=== PATIENT | female | born 1955 | race Caucasian/White ===

== ENCOUNTER → 2018-03-28 | Outpatient (CLI) | payer BC ==
[~2018-03-28] MED LIST: LEVOTHYROXINE50 MCG PO; LISINOPRIL10 MG PO; METOPROLOL SUCC25 MG PO; METOPROLOL TART50 MG PO
== END ==
LOC: RAD 16:17
PROVIDERS: ATTEND Family Medicine
DX: R60.0 Localized edema (principal)
CPT/HCPCS: 93971

== ENCOUNTER 2019-04-29 12:54 | Emergency (ER) | payer MEDICARE ==
[~2019-04-29] VITALS: Ht 162.6 cm; Wt 141.1 kg
--- OUTSIDE RECORDS SUMMARY | 2019-04-29 12:57 | XMS REPORT | Continuity of Care Document ---
Author Author [employer] Organization [employer] Address Unknown Phone Unavailable Care Team Providers Care Telephoto Engineer Name Role Phone [employer] Information PAK Unavailable Unavailable Problems Problem Status Onset Date Classification Date Reported Comments Source UNK Active 02/24/2016 [facility] S/P SENTINAL NODE INJECTION Active 02/24/2016 [facility] N64.9 - "DISORDER OF BREAST, UNSPECIFIE" Active 01/15/2016 [facility] [place] Chronic obstructive lung disease (disorder) Active Problem 03/08/2016 [facility] Hypertensive disorder, systemic arterial (disorder) Active Problem 03/08/2016 [facility] Hypothyroidism (disorder) Active Problem 03/08/2016 [facility] Sleep apnea (finding) Active Problem 03/08/2016 uses a CPAP [facility] Malignant tumor of breast (disorder) Active Problem 03/08/2016 [facility] Medications Medication Details Route Status Patient Instructions Ordering Provider Order Date Source Tylenol 325 mg, Route: PO, Drug form: TAB, Q6H, Dosing Weight 139.545, kg, PRN Pain Score 1-3, Start date: 03/05/16 11:58:00 CDT, Duration: 30 day, Stop date: 04/04/16 11:57:00 CDT Inactive 03/05/2016 [facility] Tylenol 650 mg, 2 tab, Route: PO, Drug form: TAB, Q6H, Dosing Weight 139.545, kg, PRN Pain Score 1-3, Start date: 03/05/16 11:29:00 CDT, Stop date: 04/04/16 11:28:00 CDTNotes: Do not exceed 4 gm/day. (Same as: Tylenol) Inactive 03/05/2016 [facility] Streptococcus pneumoniae serotype 1 capsular antigen diphtheria [id number] protein conjugate vaccine / Streptococcus pneumoniae serotype 14 capsular antigen diphtheria [id number] protein conjugate vaccine / Streptococcus pneumoniae serotype 18C capsular antigen d 0.5 mL, Route: IM, Drug Form: INJ, Daily, Start date: 03/05/16 9:00:00 CDT, Stop date: 03/05/16 11:00:00 CDTNotes: Lightly roll vial (DO NOT SHAKE) before administration. (Same as: Prevnar 13) Inactive 03/05/2016 [facility] metoprolol extended release 25 mg, 1 tab, Route: PO, Drug form: ERTAB, Daily, Start date: 03/05/16 9:00:00 CDT, Duration: 30 day, Stop date: 04/03/16 9:00:00 CDTNotes: (Same as: Toprol XL) Do Not Crush Inactive 03/05/2016 [facility] Lisinopril 10 mg, 1 tab, Route: PO, Drug form: TAB, Daily, Dosing Weight 139.545, kg, Start date: 03/05/16 9:00:00 CDT, Duration: 30 day, Stop date: 04/03/16 9:00:00 CDTNotes: (Same as: Prinivil, Zestril) Inactive 03/05/2016 [facility] Thyroxine 50 microgram, 1 tab, Route: PO, Drug form: TAB, Q630AM, Dosing Weight 139.545, kg, Start date: 03/05/16 6:30:00 CDT, Duration: 30 day, Stop date: 04/03/16 6:30:00 CDTNotes: Take 1 hour before or 2 hours after meal; Enteral feeds may interefere with the absorption of this medication.(Same as:Levothroid, Synthroid) Inactive 03/05/2016 [facility] Phenergan 25 mg, 1 supp, Route: VT, Drug form: SUPP, ONCE, Dosing Weight 139.545, kg, PRN Nausea & Vomiting, Start date: 03/04/16 22:25:00 CDT, Stop date: 04/03/16 22:24:00 CDTNotes: (Same as: Phenergan) Inactive 03/05/2016 [facility] Acetaminophen 300 MG / Codeine Phosphate 30 MG Oral Tablet [Tylenol with Codeine #3] 1 tab, Route: PO, Drug Form: TAB, Dosing Weight 139.545, kg, Q4H, PRN Pain Score 1-3, Start date: 03/04/16 16:41:00 CDT, Duration: 30 day, Stop date: 04/03/16 16:40:00 CDTNotes: Do not exceed 4gm/day of acetaminophen. (Same as: Tylenol with Codeine # 3) No Longer Active 03/04/2016 [facility] Morphine 2 mg, 1 mL, Route: IVP, Drug form: INJ, Q1H, Dosing Weight 139.545, kg, PRN Pain Score 7-10, Start date: 03/04/16 16:37:00 CDT, Duration: 30 day, Stop date: 04/03/16 16:36:00 CDTNotes: (Same as:MORPhine Sulfate) No Longer Active 03/04/2016 [facility] Zofran 4 mg, 2 mL, Route: IV, Drug form: INJ, Q4H, Dosing Weight 139.545, kg, PRN Nausea, Start date: 03/04/16 16:37:00 CDT, Duration: 30 day, Stop date: 04/03/16 16:36:00 CDTNotes: (Same as: Zofran) MEDICATION WASTE Product Size: 4 mg Product Wasted: ___ mg No Longer Active 03/04/2016 [facility] Lactated Ringers 1,000 mL 1,000 mL, Rate: 40 ml/hr, Infuse over: 25 hr, Route: IV, Dosing Weight 139.545 kg, Total Volume: 1,000, Start date: 03/04/16 16:35:00 CDT, Duration: 30 day, Stop date: 04/03/16 16:34:00 CDT No Longer Active 03/04/2016 [facility] Ondansetron 4 mg, Route: IVP, ONCE, Dosing Weight 139.545, kg, PRN Nausea & Vomiting, Start date: 03/04/16 13:23:00 CDT Inactive 03/04/2016 [facility] Naloxone 0.4 mg, Route: IVP, Q2MIN, Dosing Weight 139.545, kg, PRN Narcotic Reversal, Start date: 03/04/16 13:23:00 CDT, Duration: 8 doses or times, Stop date: Limited # of times Inactive 03/04/2016 [facility] Flumazenil 0.2 mg, Route: IVP, PRN, Dosing Weight 139.545, kg, PRN Benzodiazepine Reversal, Initial dose, Start date: 03/04/16 13:23:00 CDT, Duration: 30 day, Stop date: 04/03/16 13:22:00 CDT Inactive 03/04/2016 [facility] Fentanyl 50 microgram, Route: IVP, Q5Min, Dosing Weight 139.545, kg, PRN Pain Score 7-10, Start date: 03/04/16 13:23:00 CDT, Duration: 2 doses or times, Stop date: Limited # of times Inactive 03/04/2016 [facility] Hydromorphone 0.5 mg, Route: IVP, Q5Min, Dosing Weight 139.545, kg, PRN Pain Score 7-10, Start date: 03/04/16 13:23:00 CDT, Duration: 4 doses or times, Stop date: Limited # of times Inactive 03/04/2016 [facility] Oxycodone 10 mg, Route: PO, Drug form: TAB, Q4H, Dosing Weight 139.545, kg, PRN Pain Score 7-10, Start date: 03/04/16 13:23:00 CDT, Duration: 30 day, Stop date: 04/03/16 13:22:00 CDT Inactive 03/04/2016 [facility] Acetaminophen 1,000 mg, Route: IVPB, Drug form: INJ, ONCE, Dosing Weight 139.545, kg, PRN Pain Score 1-3, Start date: 03/04/16 13:23:00 CDT, Duration: 1 doses or times, Stop date: Limited # of times Inactive 03/04/2016 [facility] Labetalol 10 mg, Route: IVP, Q5Min, Dosing Weight 139.545, kg, PRN Elevated BP, Start date: 03/04/16 13:23:00 CDT, Duration: 5 doses or times, Stop date: Limited # of times Inactive 03/04/2016 [facility] neostigmine (ANES) Route: IV, Drug form: INJ, ONCE, Stop date: 03/04/16 13:13:00 CDT Inactive 03/04/2016 [facility] glycopyrrolate (ANES) Route: IV, Drug form: INJ, ONCE, Stop date: 03/04/16 13:13:00 CDT Inactive 03/04/2016 [facility] hydromorphone (ANES) Route: IV, Drug form: INJ, ONCE, Stop date: 03/04/16 13:09:00 CDT Inactive 03/04/2016 [facility] ondansetron (ANES) Route: IV, Drug form: INJ, ONCE, Stop date: 03/04/16 13:09:00 CDT Inactive 03/04/2016 [facility] ePHEDrine (ANES) Route: IV, Drug form: INJ, ONCE, Stop date: 03/04/16 11:29:00 CDT Inactive 03/04/2016 [facility] lidocaine (ANES) Route: IV, Drug form: INJ, ONCE, Stop date: 03/04/16 11:24:00 CDT Inactive 03/04/2016 [facility] propofol (ANES) Route: IV, Drug form: INJ, ONCE, Stop date: 03/04/16 11:24:00 CDT Inactive 03/04/2016 [facility] rocuronium (ANES) Route: IV, Drug form: INJ, ONCE, Stop date: 03/04/16 11:24:00 CDT Inactive 03/04/2016 [facility] fentaNYL (ANES) Route: IV, Drug form: INJ, ONCE, Stop date: 03/04/16 11:24:00 CDT Inactive 03/04/2016 [facility] midazolam (ANES) Route: IV, Drug form: SOLN, ONCE, Stop date: 03/04/16 11:24:00 CDT Inactive 03/04/2016 [facility] acetaminophen (ANES) (ANES) Route: IV, Drug form: INJ, Start date: 03/04/16 10:57:00 CDT, Stop date: 03/04/16 11:57:00 CDT Inactive 03/04/2016 [facility] ceFAZolin (ANES) (ANES) Route: IV, Drug form: INJ, Start date: 03/04/16 10:45:00 CDT, Stop date: 03/04/16 11:45:00 CDT Inactive 03/04/2016 [facility] LR 1000 mL INJ (ANES) Route: IV, Total Volume: 1,000, Start date: 03/04/16 10:39:00 CDT, Stop date: 03/04/16 11:39:00 CDT Inactive 03/04/2016 [facility] Calcium Chloride 0.0014 MEQ/ML / Potassium Chloride 0.004 MEQ/ML / Sodium Chloride 0.103 MEQ/ML / Sodium Lactate 0.028 MEQ/ML Injectable Solution 1,000 mL, Rate: 25 ml/hr, Infuse over: 40 hr, Route: IV, Dosing Weight 139.545 kg, Total Volume: 1,000, Start date: 03/04/16 9:29:00 CDT, Duration: 30 day, Stop date: 04/03/16 9:28:00 CDT Inactive 03/04/2016 [facility] methylene blue 10 mg/mL injectable solution 100 mg, 10 mL, Route: InFILtration(local), Drug form: INJ, ONCE, Dosing Weight 139.545, kg, Start date: 03/04/16 7:11:00 CDT, Stop date: 03/04/16 7:11:00 CDTNotes: (Same as :Methylene Blue) MEDICATION WASTE Product Size: 100 mg Product Wasted: ___ mg Inactive 03/04/2016 [facility] Fentanyl 50 microgram, 1 mL, Route: IVP, Drug form: INJ, Q5Min, Dosing Weight 140, kg, PRN Pain Score 7-10, Start date: 02/11/16 16:20:00 CDT, Duration: 2 doses or times, Stop date: Limited # of timesNotes: ( Same as: Sublimaze) Preservative free. No Longer Active 02/11/2016 [facility] Oxycodone 10 mg, 2 tab, Route: PO, Drug form: TAB, Q4H, Dosing Weight 140, kg, PRN Pain Score 7-10, Start date: 02/11/16 16:20:00 CDT, Duration: 30 day, Stop date: 03/12/16 16:19:00 CDTNotes: (Same as: Roxicodone) No Longer Active 02/11/2016 [facility] Morphine 4 mg, 2 mL, Route: IVP, Drug form: INJ, Q5Min, Dosing Weight 140, kg, PRN Pain Score 7-10, Start date: 02/11/16 16:20:00 CDT, Duration: 3 doses or times, Stop date: Limited # of timesNotes: (Same as: MORPhine Sulfate) No Longer Active 02/11/2016 [facility] Hydromorphone 0.5 mg, 0.5 mL, Route: IVP, Drug form: INJ, Q5Min, Dosing Weight 140, kg, PRN Pain Score 7-10, Start date: 02/11/16 16:20:00 CDT, Duration: 4 doses or times, Stop date: Limited # of times No Longer Active 02/11/2016 [facility] Ondansetron 4 mg, 2 mL, Route: IVP, Drug form: INJ, ONCE, Dosing Weight 140, kg, PRN Nausea & Vomiting, Start date: 02/11/16 16:20:00 CDTNotes: (Same as: Zofran) MEDICATION WASTE Product Size: 4 mg Pr oduct Wasted: ___ mg No Longer Active 02/11/2016 [facility] Meperidine 12.5 mg, 0.25 mL, Route: IVP, Drug form: INJ, Q30Min, Dosing Weight 140, kg, PRN Other -See Comment, For shivering, Start date: 02/11/16 16:20:00 CDT, Duration: 2 doses or times, Stop date: Limited # of timesNotes: (Same As: Demerol) No Longer Active 02/11/2016 [facility] Promethazine 6.25 mg, 0.25 mL, Route: IVPB, ONCE, Dosing Weight 140, kg, PRN Nausea & Vomiting, Start date: 02/11/16 16:20:00 CDTNotes: Do not give IV push. (Same as: Phenergan) No Longer Active 02/11/2016 [facility] Flumazenil 0.2 mg, 2 mL, Route: IVP, Drug form: INJ, PRN, Dosing Weight 140, kg, PRN Benzodiazepine Reversal, Initial dose, Start date: 02/11/16 16:20:00 CDT, Duration: 30 day, Stop date: 03/12/16 16:19:00 CDTNotes: (Same as: Romazicon) No Longer Active 02/11/2016 [facility] Naloxone 0.4 mg, 1 mL, Route: IVP, Drug form: INJ, Q2MIN, Dosing Weight 140, kg, PRN Narcotic Reversal, Start date: 02/11/16 16:20:00 CDT, Duration: 8 doses or times, Stop date: Limited # of timesNotes: Same as Narcan No Longer Active 02/11/2016 [facility] Hydralazine 10 mg, 0.5 mL, Route: IVP, Drug form: INJ, Q20Min, Dosing Weight 140, kg, PRN Elevated BP, Start date: 02/11/16 16:20:00 CDT, Duration: 2 doses or times, Stop date: Limited # of timesNotes: (Same as: Apresoline) Push over 5 minutes No Longer Active 02/11/2016 [facility] Ketorolac 30 mg, 1 mL, Route: IVP, Drug form: INJ, ONCE, Dosing Weight 140, kg, Start date: 02/11/16 16:20:00 CDT, Duration: 1 doses or times, Stop date: 02/11/16 16:20:00 CDTNotes: (Same as:Toradol) IV bolus must be given >15 seconds. Give IM administration slowly and deeply into the muscle. Not for use > 4 days MEDICATION WASTE Product Size: 30 mg Product Wasted: ___ mg Inactive 02/11/2016 [facility] Metoprolol 1 mg, 1 mL, Route: IVP, Drug form: INJ, Q5Min, Dosing Weight 140, kg, PRN Other -See Comment, Start date: 02/11/16 16:20:00 CDT, Duration: 5 doses or times, Stop date: Limited # of timesNotes: (Same as: Lopressor) Push over 2 minutes No Longer Active 02/11/2016 [facility] ePHEDrine (ANES) Route: IV, Drug form: INJ, ONCE, Stop date: 02/11/16 14:58:00 CDT Inactive 02/11/2016 [facility] acetaminophen (ANES) Route: IV, Drug form: INJ, ONCE, Stop date: 02/11/16 14:42:00 CDT Inactive 02/11/2016 [facility] phenylephrine (ANES) Route: IV, Drug form: INJ, ONCE, Stop date: 02/11/16 14:42:00 CDT Inactive 02/11/2016 [facility] fentaNYL (ANES) Route: IV, Drug form: INJ, ONCE, Stop date: 02/11/16 14:22:00 CDT Inactive 02/11/2016 [facility] propofol (ANES) Route: IV, Drug form: INJ, ONCE, Stop date: 02/11/16 14:22:00 CDT Inactive 02/11/2016 [facility] lidocaine (ANES) Route: IV, Drug form: INJ, ONCE, Stop date: 02/11/16 14:22:00 CDT Inactive 02/11/2016 [facility] ondansetron (ANES) Route: IV, Drug form: INJ, ONCE, Stop date: 02/11/16 14:22:00 CDT Inactive 02/11/2016 [facility] ceFAZolin (ANES) Route: IV, Drug form: INJ, ONCE, Stop date: 02/11/16 14:22:00 CDT Inactive 02/11/2016 [facility] midazolam (ANES) Route: IV, Drug form: SOLN, ONCE, Stop date: 02/11/16 14:22:00 CDT Inactive 02/11/2016 [facility] LR 1000 mL INJ (ANES) Route: IV, Total Volume: 1,000, Start date: 02/11/16 13:37:00 CDT, Stop date: 02/11/16 14:37:00 CDT Inactive 02/11/2016 [facility] Calcium Chloride 0.0014 MEQ/ML / Potassium Chloride 0.004 MEQ/ML / Sodium Chloride 0.103 MEQ/ML / Sodium Lactate 0.028 MEQ/ML Injectable Solution 1,000 mL, Rate: 25 ml/hr, Infuse over: 40 hr, Route: IV, Dosing Weight 140 kg, Total Volume: 1,000, Start date: 02/11/16 12:31:00 CDT, Duration: 30 day, Stop date: 03/12/16 12:30:00 CDT Inactive 02/11/2016 [facility] Methylene blue 10 MG/ML Injectable Solution 30 mg, 3 mL, Route: InFILtration(local), Drug form: INJ, ONCE, Dosing Weight 140, kg, Start date: 02/11/16 10:14:00 CDT, Stop date: 02/11/16 10:14:00 CDTNotes: (Same as:Methylene Blue) MEDICATION WASTE Product Size: 10 mg Product Wasted: ___ mg Inactive 02/11/2016 [facility] Acetaminophen 500 MG Oral Tablet [Tylenol] 1,000 mg=2 tab, PO, Q6H, 0 Refill(s) Active 02/05/2016 [facility] multivitamin Daily, 0 Refill(s) Active 02/05/2016 [facility] metoprolol extended release PO, Daily, 0 Refill(s) Active 02/05/2016 [facility] Ibuprofen 0 Refill(s) Active 02/05/2016 [facility] Lisinopril PO, Daily, 0 Refill(s) Active 02/05/2016 [facility] levothyroxine 50 mcg (0.05 mg) oral tablet 50 microgram=1 tab, PO, Daily, 0 Refill(s) Active 02/05/2016 [facility] Allergies, Adverse Reactions, Alerts Substance Category Reaction Severity Reaction type Status Date Reported Comments Source erythromycin Assertion Drug allergy Active [facility] iodine topical Assertion Drug allergy Active [facility] tetracyclines Assertion Drug allergy Active [facility] Vicodin Assertion Drug allergy Active [facility] Levaquin Assertion Drug allergy Active [facility] statins Assertion Drug allergy Active [facility] Immunizations Immunization Date Given Site Status Last Updated Comments Source pneumococcal 13-valent vaccine 03/05/2016 Buttock completed Kapil [facility] Results No Data Provided for This Section Pathology Reports No Data Provided for This Section Diagnostic Reports Report Value Date Source Sentinal Node injection NM BREAST INJECTION FOR SENTINEL LYMPH NODE LOCALIZATION Clinical Indication: C50.812 Malignant neoplasm of overlapping sites of left female breast The left breast was injected with 1 mCi of filtered technetium sulfur colloid in the subareolar region at the 6 o'clock position. The injection was made in a single aliquot. The breast was massaged for a period of 1-2 minutes. The patient tolerated the procedure well. SL: [id number] 03/04/2016 [facility] Breast specimen surgery - BREAST SPECIMEN SURGERY SPECIMEN: 02/11/2016 CLINICAL: Breast Cancer. Correlation is made to exams dated: 02/11/2016 mammogram - [facility], 01/22/2016 mammogram - [facility], 12/30/2015 mammogram, 12/30/2015 ultrasound and 12/30/2015 ultrasound - [facility]. A specimen submitted for radiography demonstrates the targeted mass, clip, and distal portion of the wire. Final pathology results are as follows: '1. Left breast mass at 6 o'clock position, needle localization wire-guided lumpectomy: - INVASIVE DUCTAL CARCINOMA, MUCINOUS/COLLOID TYPE, NUCLEAR GRADE 1. TUMOR IS 1.6 CM IN GREATEST DIMENSION. - Tumor is at 0.8 mm from the inked anterior margin and 1.6 mm from the inked posterior margin (see comment). - Changes consistent with previous biopsy site. - Columnar cell changes with focal atypia. - Fibrocystic changes with adenosis and complex sclerosing lesion/papilloma. 2. Left breast mass additional superior margin: - Breast parenchyma, no tumor present. - Inked new margin is free of tumor.' IMPRESSION: SPECIMEN Surgical and oncologic follow up is recommended. Jeramy Juarez M.D. ap/:02/16/2016 08:00:32 Hand Buffer: Radha Argueta, [facility] This exam was dictated and interpreted by [id number] for [facility], 12. letter sent: Post Bx Results 02/11/2016 [facility] Digital Mammo DX Uni MA - DIGITAL MAMMO DX UNI MA/L UNILATERAL LEFT DIGITAL DIAGNOSTIC MAMMOGRAM WITH CAD: 02/11/2016 CLINICAL: Post Procedure Wire Placement. Current study was evaluated with a Computer Aided Detection (CAD) system. Comparison is made to exams dated: 02/11/2016 localization - [facility], 01/22/2016 ultrasound and 01/22/2016 mammogram - [facility]. Postprocedure digital mammogram demonstrates the targeted mass and clip are at the reinforced segment of the wire. IMPRESSION: POST PROCEDURE MAMMOGRAM FOR MARKER PLACEMENT Successful needle localization of the left breast 6 o'clock mass. Jeramy Juarez M.D. ap/:02/11/2016 11:23:00 Hand Buffer: Deb Calderon, [facility] This exam was dictated and interpreted by [id number] for [facility]. Mammogram BI-RADS: Post-procedure mammogram for marker placement 02/11/2016 [facility] US Guided Needle Localization Uni MA AMENDMENT: 05/24/2016 Crow Stanford M.D. letter sent: Post Bx Results - US GUIDED NEEDLE LOCALIZATION UNI MA/L ULTRASOUND GUIDED WIRE LOCALIZATION LEFT BREAST WITH POST DIGITAL MAMMOGRAPHIC IMAGIN02/11/2016 CLINICAL: Mass. PATIENT CONSENT: Informed consent was obtained for preoperative hookwire needle localization of the targeted lesion following a detailed discussion of the risk, alternatives, benefits and complications. A formal timeout was performed by the team prior to the procedure to verify the patient's identity and lesion site. Correlation is made to exam dated: 01/22/2016 ultrasound - [facility]. A wire localization using ultrasound guidance was performed for the 1.1 cm irregular shaped mass located in the left breast at 6 o'clock posterior depth 5 cm from the nipple. This was described on the previous ultrasound report. The skin was prepped in the usual manner. Local anesthetic was administered to the access site. A skin eric was made in the breast. The localization was approach ed from the lateral aspect. A wire was inserted into the targeted area through an introducer device under ultrasound guidance. A sterile dressing was applied to the access site. Post placement digital mammographic imaging demonstrates the mass and clip are at the reinforced segment of the wire. IMPRESSION: WIRE LOCALIZATION Wire localization for the 1.1 cm mass in the left breast at 6 o'clock posterior depth 5 cm from the nipple was successful with no apparent post procedure complications. Jeramy Juarez M.D. ap/:02/11/2016 11:21:00 Hand Buffer: Adonay Moya, [facility] This exam was dictated and interpreted by [id number] for [facility]. 02/11/2016 [facility] Breast Complete Martha US - BREAST COMPLETE MRATHA US ULTRASOUND OF BOTH BREASTS AND LEFT AXILLA: 01/22/2016 CLINICAL: N64.9 Disorder Of Breast, Unspecified. Comparison is made to exams dated: 01/22/2016 mammogram - [facility], 12/30/2015 mammogram, 12/30/2015 ultrasound, 12/30/2015 ultrasound, 12/25/2015 mammogram and 12/20/2015 mammogram - [facility]. Color flow and real-time ultrasound of both breasts and left axilla were performed. There is a benign lymph node in the right axillary tail. This correlates with mammography findings. There is a 1.5 cm x 1.2 cm x 0.8 cm irregular mass with an indistinct margin in the left breast at 6 o'clock middle depth. This irregular mass is hypoechoic. This correlates with mammography findings. There is an associated biopsy clip. Pathology shows suspicion for mucinous carcinoma. No abnormalities were seen sonographically in the left axillary or internal mammary hermilo basins. IMPRESSION: SUSPICIOUS OF MALIGNANCY - FOLLOW-UP RECOMMENDED The 1.5 cm x 1.2 cm x 0.8 cm irregular mass in the left breast at 6 o'clock middle depth is suspicious of malignancy. A needle localization and surgical biopsy are recommended. Crow Stanford M.D. cm/:01/22/2016 11:53:08 Hand Buffer: Inga Plascencia RT, [facility] This exam was dictated and interpreted by [id number] for [facility]. Ultrasound BI-RADS: 4 Suspicious abnormality 01/22/2016 [facility] Digital Mammo DX Uni MA AMENDMENT: 05/25/2016 Crow Stanford M.D. Amended BI-RADS: 0 Indeterminate letter sent: Followup - DIGITAL MAMMO DX UNI MA/R UNILATERAL RIGHT DIGITAL DIAGNOSTIC MAMMOGRAM WITH CAD: 01/22/2016 CLINICAL: N64.9 Disorder Of Breast, Unspecified. Current study was evaluated with a Computer Aided Detection (CAD) system. Comparison is made to exams dated: 12/20/2015 mammogram, 12/30/2015 mammogram, 12/30/2015 ultrasound, 12/30/2015 ultrasound, 12/15/2015 ultrasound and 12/25/2015 mammogram - [facility]. The tissue of the right breast is almost entirely fat. There is a 0.9 cm oval mass in the right breast at 10 o'clock posterior depth 16 cm from the nipple. No other significant masses or calcifications are seen in the breast. IMPRESSION: INCOMPLETE: NEEDS ADDITIONAL IMAGING EVALUATION The 0.9 cm oval mass in the right breast likely represents a lymph node and is indeterminate. An ultrasound is recommended. Crow Stanford M.D. cm/penrad:01/22/2016 10:37:10 Hand Buffer: Key Fuentes RT(R)(M), [facility] This exam was dictated and interpreted by [id number] for [facility]. Mammogram BI-RADS: 0 Indeterminate 01/22/2016 [facility] Consultation Notes No Data Provided for This Section Discharge Summaries No Data Provided for This Section History and Physicals No Data Provided for This Section Vital Signs Vital Sign Value Date Comments Source Systolic (mm Hg) 136 03/05/2016 [facility] Diastolic (mm Hg) 75 03/05/2016 [facility] Respitory Rate 16 03/05/2016 [facility] Heart Rate 76 03/05/2016 [facility] Temperature Oral (F) 98.4 F 03/05/2016 [facility] Temperature Oral (F) 97.9 F 03/05/2016 [facility] Heart Rate 75 03/05/2016 [facility] Respitory Rate 16 03/05/2016 [facility] Systolic (mm Hg) 115 03/05/2016 [facility] Diastolic (mm Hg) 70 03/05/2016 [facility] Resp[facility] Rate 16 03/05/2016 [facility] Heart Rate 75 03/05/2016 [facility] Systolic (mm Hg) 127 03/05/2016 [facility] Diastolic (mm Hg) 74 03/05/2016 [facility] Temperature Oral (F) 98.3 F 03/05/2016 [facility] Weight 139.545 03/02/2016 [facility] BMI Calculated 51.19 03/02/2016 [facility] Height 165.1 cm 03/02/2016 [facility] Systolic (mm Hg) 118 02/11/2016 [facility] Diastolic (mm Hg) 42 02/11/2016 [facility] Systolic (mm Hg) 126 02/11/2016 [facility] Diastolic (mm Hg) 51 02/11/2016 [facility] Respitory Rate 19 02/11/2016 [facility] Systolic (mm Hg) 122 02/11/2016 [facility] Diastolic (mm Hg) 65 02/11/2016 [facility] Respitory Rate 19 02/11/2016 [facility] Respitory Rate 12 02/11/2016 [facility] Heart Rate 69 02/11/2016 [facility] Heart Rate 69 02/05/2016 [facility] Temperature Oral (F) 98.3 F 02/05/2016 [facility] Height 165.1 cm 02/05/2016 [facility] Weight 140 02/05/2016 [facility] BMI Calculated 51.36 02/05/2016 [facility] Encounters Location Location Details Encounter Type Encounter Number Reason For Visit Attending Provider ADM Date DC Date Status Source [facility] [place] [facility] [id number] Albino Phan II 01/22/2016 01/23/2016 [facility] Day Surgery [id number] Albino Phan II 02/11/2016 02/11/2016 [facility] OBS Observation Patient [id number] Albino Phan II 03/04/2016 03/05/2016 [facility] Procedures Procedure Code Date Perfomer Comments Source ACL - Reconstruction of anterior cruciate ligament [id number] [facility] Appendectomy [id number] [facility] Carpal tunnel release [id number] [facility] Epidural block [id number] [facility] Hip replacement [id number] [facility] Hysterectomy [id number] [facility] Nerve block [id number] [facility] Assessment and Plan Assessment and Plan Date Source Extracted from:Title: Clinical Document Author: Albino Saldaña MD Date: 03/05/16 doing well. nausea overnight resolved. pain control good. incision clean. final diagnosis: Left breast cancer operations/procedures: see op report activity: as instructed in office f/u: 2 weeks meds: see med reconciliation d/c home today 03/05/2016 [facility] Plan of Care No Data Provided for This Section Social History Social History Date Source Social History TypeResponse Substance Abuse Use: None. Alcohol Past Smoking Status Former smoker; Type: Cigarettes; Stopped at age: 25; Exposure to Tobacco Smoke None; Cigarette Smoking Last 365 Days No; Reg Smoking Cessation Counseling No 03/02/2016 [facility] Social History TypeResponse 01/23/2016 [facility] Family History No Data Provided for This Section Advance Directives No Data Provided for This Section Functional Status No Data Provided for This Section
--- OUTSIDE RECORDS SUMMARY | 2019-04-29 12:57 | XMS REPORT | Summary of Care ---
Author Author [facility] Organization [facility] Address Unknown Phone Unavailable Encounter EDER Truong(KAITLIN) [id number] Date(s): 02/11/16 - 02/11/16 [facility] [address] [place] [address]- Discharge Disposition: Home Attending Physician: Albino Saldaña MD Referring Physician: Albino Saldaña MD Vital Signs 1 2 3 Most recent to oldest [Reference Range]: 165.1 cm (02/05/16 1:22 PM) Height 98.3 DegF (02/05/16 1:23 PM) Temperature Oral [96.4-99.1 DegF] 118/42 mmHg (02/11/16 4:30 PM) 126/51 mmHg (02/11/16 3:45 PM) 122/65 mmHg (02/11/16 3:30 PM) Blood Pressure [90-140/60-90 mmHg] 19 BRMIN (02/11/16 3:30 PM) 19 BRMIN (02/11/16 3:15 PM) 12 BRMIN *LOW* (02/11/16 3:00 PM) Respiratory Rate [14-20 BRMIN] 69 bpm (02/11/16 12:33 PM) 69 bpm (02/05/16 1:23 PM) Peripheral Pulse Rate [60-100 bpm] 140 kg (02/05/16 1:22 PM) Weight 51.36 m2 (02/05/16 1:22 PM) Body Mass Index Problem List Condition Effective Dates Status Health Status Informant COPD (chronic Active obstructive pulmonary disease)(Confirmed) HTN Active (hypertension)(Confi rmed) Hypothyroidism(Confi Active rmed) Sleep Active apnea(Confirmed)1 1uses a CPAP Allergies, Adverse Reactions, Alerts Substance Reaction Severity Status erythromycin Active iodine topical Active Levaquin Active statins Active tetracyclines Active Vicodin Active Medications acetaminophen (ANES) Route: IV, Drug form: INJ, ONCE, Stop date: 02/11/16 14:42:00 CDT Start Date: 02/11/16 Stop Date: 02/11/16 Status: Completed ANES fentaNYL 50 microgram, 1 mL, Route: IVP, Drug form: INJ, Q5Min, Dosing Weight 140, kg, VA N Pain Score 7-10, Start date: 02/11/16 16:20:00 CDT, Duration: 2 doses or times , Stop date: Limited # of times Notes: (Same as: Sublimaze) Preservative free. Start Date: 02/11/16 Stop Date: 02/12/16 Status: Discontinued ANES fentaNYL 25 microgram, 0.5 mL, Route: IVP, Drug form: INJ, Q5Min, Dosing Weight 140, kg, PRN Pain Score 4-6, Start date: 02/11/16 16:20:00 CDT, Duration: 4 doses or time s, Stop date: Limited # of times Notes: (Same as: Sublimaze) Preservative free. Start Date: 02/11/16 Stop Date: 02/12/16 Status: Discontinued ANES flumazenil 0.2 mg, 2 mL, Route: IVP, Drug form: INJ, PRN, Dosing Weight 140, kg, PRN Benzod iazepine Reversal, Initial dose, Start date: 02/11/16 16:20:00 CDT, Duration: 30 day, Stop date: 03/12/16 16:19:00 CDT Notes: (Same as: Romazicon) Start Date: 02/11/16 Stop Date: 02/12/16 Status: Discontinued ANES hydrALAZINE 10 mg, 0.5 mL, Route: IVP, Drug form: INJ, Q20Min, Dosing Weight 140, kg, PRN El evated BP, Start date: 02/11/16 16:20:00 CDT, Duration: 2 doses or times, Stop d ate: Limited # of times Notes: (Same as: Apresoline)Push over 5 minutes Start Date: 02/11/16 Stop Date: 02/12/16 Status: Discontinued ANES HYDROmorphone 0.5 mg, 0.5 mL, Route: IVP, Drug form: INJ, Q5Min, Dosing Weight 140, kg, PRN Pa in Score 7-10, Start date: 02/11/16 16:20:00 CDT, Duration: 4 doses or times, St op date: Limited # of times Start Date: 02/11/16 Stop Date: 02/12/16 Status: Discontinued ANES ketOROLAC 30 mg, 1 mL, Route: IVP, Drug form: INJ, ONCE, Dosing Weight 140, kg, Start date : 02/11/16 16:20:00 CDT, Duration: 1 doses or times, Stop date: 02/11/16 16:20:0 0 CDT Notes: (Same as:Toradol) IV bolus must be given >15 seconds. Give IM administration slowly and deeply into the muscle.Not for use > 4 days MEDICATION WASTE Product Size: 30 mgProduct Wasted: ___ mg Start Date: 02/11/16 Stop Date: 02/11/16 Status: Ordered ANES meperidine 12.5 mg, 0.25 mL, Route: IVP, Drug form: INJ, Q30Min, Dosing Weight 140, kg, PRN Other -See Comment, For shivering, Start date: 02/11/16 16:20:00 CDT, Duration: 2 doses or times, Stop date: Limited # of times Notes: (Same As: Demerol) Start Date: 02/11/16 Stop Date: 02/12/16 Status: Discontinued ANES metoprolol 1 mg, 1 mL, Route: IVP, Drug form: INJ, Q5Min, Dosing Weight 140, kg, PRN Other -See Comment, Start date: 02/11/16 16:20:00 CDT, Duration: 5 doses or times, Sto p date: Limited # of times Notes: (Same as: Lopressor)Push over 2 minutes Start Date: 02/11/16 Stop Date: 02/12/16 Status: Discontinued ANES morphine Sulfate 4 mg, 2 mL, Route: IVP, Drug form: INJ, Q5Min, Dosing Weight 140, kg, PRN Pain S core 7-10, Start date: 02/11/16 16:20:00 CDT, Duration: 3 doses or times, Stop d ate: Limited # of times Notes: (Same as:MORPhine Sulfate) Start Date: 02/11/16 Stop Date: 02/12/16 Status: Discontinued ANES morphine Sulfate 2 mg, 1 mL, Route: IVP, Drug form: INJ, Q5Min, Dosing Weight 140, kg, PRN Pain S core 4-6, Start date: 02/11/16 16:20:00 CDT, Duration: 5 doses or times, Stop da te: Limited # of times Notes: (Same as:MORPhine Sulfate) Start Date: 02/11/16 Stop Date: 02/12/16 Status: Discontinued ANES naloxone 0.4 mg, 1 mL, Route: IVP, Drug form: INJ, Q2MIN, Dosing Weight 140, kg, PRN Narc otic Reversal, Start date: 02/11/16 16:20:00 CDT, Duration: 8 doses or times, St op date: Limited # of times Notes: Same as Narcan Start Date: 02/11/16 Stop Date: 02/12/16 Status: Discontinued ANES ondansetron 4 mg, 2 mL, Route: IVP, Drug form: INJ, ONCE, Dosing Weight 140, kg, PRN Nausea & Vomiting, Start date: 02/11/16 16:20:00 CDT Notes: (Same as: [place]) MEDICATION WASTE Product Size: 4 mgProduct Was david: ___ mg Start Date: 02/11/16 Stop Date: 02/12/16 Status: Discontinued ANES oxyCODONE 10 mg, 2 tab, Route: PO, Drug form: TAB, Q4H, Dosing Weight 140, kg, PRN Pain Sc ore 7-10, Start date: 02/11/16 16:20:00 CDT, Duration: 30 day, Stop date: 16:19:00 CDT Notes: (Same as: Roxicodone) Start Date: 02/11/16 Stop Date: 02/12/16 Status: Discontinued ANES oxyCODONE 10 mg, 10 mL, Route: NG, Drug form: LIQ, Q4H, Dosing Weight 140, kg, PRN Pain Sc ore 7-10, Start date: 02/11/16 16:20:00 CDT, Duration: 30 day, Stop date: 16:19:00 CDT Notes: (Same as: 'Roxicodone) Start Date: 02/11/16 Stop Date: 02/12/16 Status: Discontinued ANES oxyCODONE 5 mg, 1 tab, Route: PO, Drug form: TAB, Q4H, Dosing Weight 140, kg, PRN Pain Sco re 4-6, Start date: 02/11/16 16:20:00 CDT, Duration: 30 day, Stop date: 03/12/16 16:19:00 CDT Notes: (Same as: Roxicodone) Start Date: 02/11/16 Stop Date: 02/12/16 Status: Discontinued ANES oxyCODONE 5 mg, 5 mL, Route: NG, Drug form: LIQ, Q4H, Dosing Weight 140, kg, PRN Pain Scor e 4-6, Start date: 02/11/16 16:20:00 CDT, Duration: 30 day, Stop date: 03/12/16 16:19:00 CDT Notes: (Same as: 'Roxicodone) Start Date: 02/11/16 Stop Date: 02/12/16 Status: Discontinued ANES promethazine + sodium chloride 0.9% INJ 50 mL 6.25 mg, 0.25 mL, Route: IVPB, ONCE, Dosing Weight 140, kg, PRN Nausea & Vomiting, Start date: 02/11/16 16:20:00 CDT Notes: Do not give IV push. (Same as: Phenergan) Start Date: 02/11/16 Stop Date: 02/12/16 Status: Discontinued ceFAZolin (ANES) Route: IV, Drug form: INJ, ONCE, Stop date: 02/11/16 14:22:00 CDT Start Date: 02/11/16 Stop Date: 02/11/16 Status: Completed ePHEDrine (ANES) Route: IV, Drug form: INJ, ONCE, Stop date: 02/11/16 14:58:00 CDT Start Date: 02/11/16 Stop Date: 02/11/16 Status: Completed fentaNYL (ANES) Route: IV, Drug form: INJ, ONCE, Stop date: 02/11/16 14:22:00 CDT Start Date: 02/11/16 Stop Date: 02/11/16 Status: Completed ibuprofen 0 Refill(s) Start Date: 02/05/16 Status: Ordered Lactated Ringers Injection IV 1000 mL 1,000 mL, Rate: 25 ml/hr, Infuse over: 40 hr, Route: IV, Dosing Weight 140 kg, T otal Volume: 1,000, Start date: 02/11/16 12:31:00 CDT, Duration: 30 day, Stop da te: 03/12/16 12:30:00 CDT Start Date: 02/11/16 Stop Date: 02/11/16 Status: Discontinued levothyroxine 50 mcg (0.05 mg) oral tablet 50 microgram=1 tab, PO, Daily, 0 Refill(s) Start Date: 02/05/16 Status: Ordered lidocaine (ANES) Route: IV, Drug form: INJ, ONCE, Stop date: 02/11/16 14:22:00 CDT Start Date: 02/11/16 Stop Date: 02/11/16 Status: Completed lisinopril PO, Daily, 0 Refill(s) Start Date: 02/05/16 Status: Ordered LR 1000 mL INJ (ANES) Route: IV, Total Volume: 1,000, Start date: 02/11/16 13:37:00 CDT, Stop date: 14:37:00 CDT Start Date: 02/11/16 Stop Date: 02/11/16 Status: Completed methylene blue 10 mg/mL injectable solution 30 mg, 3 mL, Route: InFILtration(local), Drug form: INJ, ONCE, Dosing Weight 140 , kg, Start date: 02/11/16 10:14:00 CDT, Stop date: 02/11/16 10:14:00 CDT Notes: (Same as:Methylene Blue) MEDICATION WASTE Product Size: 10 mgPro duct Wasted: ___ mg Start Date: 02/11/16 Stop Date: 02/11/16 Status: Ordered metoprolol extended release PO, Daily, 0 Refill(s) Start Date: 02/05/16 Status: Ordered midazolam (ANES) Route: IV, Drug form: SOLN, ONCE, Stop date: 02/11/16 14:22:00 CDT Start Date: 02/11/16 Stop Date: 02/11/16 Status: Completed multivitamin Daily, 0 Refill(s) Start Date: 02/05/16 Status: Ordered ondansetron (ANES) Route: IV, Drug form: INJ, ONCE, Stop date: 02/11/16 14:22:00 CDT Start Date: 02/11/16 Stop Date: 02/11/16 Status: Completed phenylephrine (ANES) Route: IV, Drug form: INJ, ONCE, Stop date: 02/11/16 14:42:00 CDT Start Date: 02/11/16 Stop Date: 02/11/16 Status: Completed propofol (ANES) Route: IV, Drug form: INJ, ONCE, Stop date: 02/11/16 14:22:00 CDT Start Date: 02/11/16 Stop Date: 02/11/16 Status: Completed Tylenol Extra Strength 500 mg oral tablet 1,000 mg=2 tab, PO, Q6H, 0 Refill(s) Start Date: 02/05/16 Status: Ordered Results No data available for this section Immunizations No data available for this section Procedures Procedure Date Related Diagnosis Body Site ACL - Reconstruction of anterior cruciate ligament Appendectomy Carpal tunnel release Epidural block Hip replacement Hysterectomy Nerve block Social History Social History Type Response Substance Abuse Use: None. Alcohol Past, Previous treatment: None. Smoking Status Former smoker; Type: Cigarettes; Stopped at age: 25; Exposure to Tobacco Smoke None; Cigarette Smoking Last 365 Days No; Reg Smoking Cessation Counseling No Assessment and Plan No data available for this section
--- OUTSIDE RECORDS SUMMARY | 2019-04-29 12:57 | XMS REPORT | Clinical Summary ---
Author Author [facility] Organization [facility] Address Unknown Phone Unavailable Care Team Providers Care Grocery Checker Name Role Phone Perry Youssef DO PCP Allergies Comments Active Allergy Reactions Severity Noted Date Levofloxacin Anaphylaxis High 10/25/2017 Medications Not on file Active Problems Not on file Social History Date Tobacco Use Types Packs/Day Years Used Never Assessed Sex Assigned at Date Recorded Not on file Industry Job Start Date Occupation Not on file Not on file Not on file Travel End Travel History Travel Start No recent travel history available. Last Filed Vital Signs Not on file Plan of Treatment Health Maintenance Due Date Last Done Comments CERVICAL CANCER SCREENING 1974 BREAST CANCER SCREENING 12/09/2003 COLONOSCOPY SCREENING 12/09/2003 SHINGLES VACCINES (#1) 12/09/2003 65+ PNEUMOCOCCAL VACCINE 2018 (1 of 2 - PCV13) INFLUENZA VACCINE 03/08/2019 Results Not on fileafter 04/28/2018 Insurance Type Payer Benefit Subscriber ID Effective Phone Address Plan / Dates Group PPO BCBS BCBS xxxxxxxxxxxx [id number] CHOICE resent PPO/ELMER L EMPL PPO Advance Directives For more information, please contact: [phone] Patient Evp Sales Explanation Type Date Recorded Advance Directives, 07/30/2015 12:36 PM Living Will and Medical Power of Press Writer
--- OUTSIDE RECORDS SUMMARY | 2019-04-29 12:58 | XMS REPORT | Summary of Care ---
Author Author [facility] Organization [facility] Address Unknown Phone Unavailable Encounter EDER Truong(KAITLIN) [id number] Date(s): 03/04/16 - 03/05/16 [facility] [address] [place] [address]- Discharge Disposition: Home or Self Care Attending Physician: Albino Saldaña MD Admitting Physician: Albino Saldaña MD Referring Physician: Albino Saldaña MD Vital Signs 1 2 3 Most recent to oldest [Reference Range]: 165.1 cm (03/02/16 1:48 PM) Height 98.4 DegF (03/05/16 7:42 AM) 97.9 DegF (03/05/16 4:03 AM) 98.3 DegF (03/04/16 10:44 PM) Temperature Oral [96.4-99.1 DegF] 136/75 mmHg (03/05/16 7:42 AM) 115/70 mmHg (03/05/16 4:03 AM) 127/74 mmHg (03/04/16 10:44 PM) Blood Pressure [90-140/60-90 mmHg] 16 BRMIN (03/05/16 7:42 AM) 16 BRMIN (03/05/16 4:03 AM) 16 BRMIN (03/04/16 10:44 PM) Respiratory Rate [14-20 BRMIN] 76 bpm (03/05/16 7:42 AM) 75 bpm (03/05/16 4:03 AM) 75 bpm (03/04/16 10:44 PM) Peripheral Pulse Rate [60-100 bpm] 139.545 kg (03/02/16 1:48 PM) Weight 51.19 m2 (03/02/16 1:48 PM) Body Mass Index Problem List Condition Effective Dates Status Health Status Informant Breast Active cancer(Confirmed) COPD (chronic Active obstructive pulmonary disease)(Confirmed) HTN Active (hypertension)(Confi rmed) Hypothyroidism(Confi Active rmed) Sleep Active apnea(Confirmed)1 1uses a CPAP Allergies, Adverse Reactions, Alerts Substance Reaction Severity Status erythromycin Active iodine topical Active Levaquin Active statins Active tetracyclines Active Vicodin Active Medications acetaminophen (ANES) (ANES) Route: IV, Drug form: INJ, Start date: 03/04/16 10:57:00 CDT, Stop date: 6 11:57:00 CDT Start Date: 03/04/16 Stop Date: 03/04/16 Status: Completed ANES acetaminophen 1,000 mg, Route: IVPB, Drug form: INJ, ONCE, Dosing Weight 139.545, kg, PRN Pain Score 1-3, Start date: 03/04/16 13:23:00 CDT, Duration: 1 doses or times, Stop date: Limited # of times Start Date: 03/04/16 Stop Date: 03/04/16 Status: Discontinued ANES fentaNYL 50 microgram, Route: IVP, Q5Min, Dosing Weight 139.545, kg, PRN Pain Score 7-10, Start date: 03/04/16 13:23:00 CDT, Duration: 2 doses or times, Stop date: Limit ed # of times Start Date: 03/04/16 Stop Date: 03/04/16 Status: Discontinued ANES fentaNYL 25 microgram, Route: IVP, Q5Min, Dosing Weight 139.545, kg, PRN Pain Score 4-6, Start date: 03/04/16 13:23:00 CDT, Duration: 4 doses or times, Stop date: Limite d # of times Start Date: 03/04/16 Stop Date: 03/04/16 Status: Discontinued ANES flumazenil 0.2 mg, Route: IVP, PRN, Dosing Weight 139.545, kg, PRN Benzodiazepine Reversal, Initial dose, Start date: 03/04/16 13:23:00 CDT, Duration: 30 day, Stop date: 0 04/03/16 13:22:00 CDT Start Date: 03/04/16 Stop Date: 03/04/16 Status: Discontinued ANES HYDROmorphone 0.5 mg, Route: IVP, Q5Min, Dosing Weight 139.545, kg, PRN Pain Score 7-10, Start date: 03/04/16 13:23:00 CDT, Duration: 4 doses or times, Stop date: Limited # of times Start Date: 03/04/16 Stop Date: 03/04/16 Status: Completed ANES labetalol 10 mg, Route: IVP, Q5Min, Dosing Weight 139.545, kg, PRN Elevated BP, Start date : 03/04/16 13:23:00 CDT, Duration: 5 doses or times, Stop date: Limited # of doc es Start Date: 03/04/16 Stop Date: 03/04/16 Status: Discontinued ANES naloxone 0.4 mg, Route: IVP, Q2MIN, Dosing Weight 139.545, kg, PRN Narcotic Reversal, Sta rt date: 03/04/16 13:23:00 CDT, Duration: 8 doses or times, Stop date: Limited # of times Start Date: 03/04/16 Stop Date: 03/04/16 Status: Discontinued ANES ondansetron 4 mg, Route: IVP, ONCE, Dosing Weight 139.545, kg, PRN Nausea & Vomiting, Start date: 03/04/16 13:23:00 CDT Start Date: 03/04/16 Stop Date: 03/04/16 Status: Completed ANES oxyCODONE 10 mg, Route: PO, Drug form: TAB, Q4H, Dosing Weight 139.545, kg, PRN Pain Score 7-10, Start date: 03/04/16 13:23:00 CDT, Duration: 30 day, Stop date: 04/03/16 13:22:00 CDT Start Date: 03/04/16 Stop Date: 03/04/16 Status: Discontinued ANES oxyCODONE 5 mg, Route: PO, Drug form: TAB, Q4H, Dosing Weight 139.545, kg, PRN Pain Score 4-6, Start date: 03/04/16 13:23:00 CDT, Duration: 30 day, Stop date: 04/03/16 13 :22:00 CDT Start Date: 03/04/16 Stop Date: 03/04/16 Status: Discontinued ceFAZolin (ANES) (ANES) Route: IV, Drug form: INJ, Start date: 03/04/16 10:45:00 CDT, Stop date: 6 11:45:00 CDT Start Date: 03/04/16 Stop Date: 03/04/16 Status: Completed ePHEDrine (ANES) Route: IV, Drug form: INJ, ONCE, Stop date: 03/04/16 11:29:00 CDT Start Date: 03/04/16 Stop Date: 03/04/16 Status: Completed fentaNYL (ANES) Route: IV, Drug form: INJ, ONCE, Stop date: 03/04/16 11:24:00 CDT Start Date: 03/04/16 Stop Date: 03/04/16 Status: Completed glycopyrrolate (ANES) Route: IV, Drug form: INJ, ONCE, Stop date: 03/04/16 13:13:00 CDT Start Date: 03/04/16 Stop Date: 03/04/16 Status: Completed hydromorphone (ANES) Route: IV, Drug form: INJ, ONCE, Stop date: 03/04/16 13:09:00 CDT Start Date: 03/04/16 Stop Date: 03/04/16 Status: Completed Lactated Ringers 1,000 mL 1,000 mL, Rate: 40 ml/hr, Infuse over: 25 hr, Route: IV, Dosing Weight 139.545 k g, Total Volume: 1,000, Start date: 03/04/16 16:35:00 CDT, Duration: 30 day, Sto p date: 04/03/16 16:34:00 CDT Start Date: 03/04/16 Stop Date: 03/05/16 Status: Discontinued Lactated Ringers Injection IV 1000 mL 1,000 mL, Rate: 25 ml/hr, Infuse over: 40 hr, Route: IV, Dosing Weight 139.545 k g, Total Volume: 1,000, Start date: 03/04/16 9:29:00 CDT, Duration: 30 day, Stop date: 04/03/16 9:28:00 CDT Start Date: 03/04/16 Stop Date: 03/04/16 Status: Discontinued levothyroxine 50 microgram, 1 tab, Route: PO, Drug form: TAB, Q630AM, Dosing Weight 139.545, k g, Start date: 03/05/16 6:30:00 CDT, Duration: 30 day, Stop date: 04/03/16 6:30: 00 CDT Notes: Take 1 hour before or 2 hours after meal; Enteral feeds may interefere wi th the absorption of this medication.(Same as:Levothroid, Synthroid) Start Date: 03/05/16 Stop Date: 03/05/16 Status: Discontinued lidocaine (ANES) Route: IV, Drug form: INJ, ONCE, Stop date: 03/04/16 11:24:00 CDT Start Date: 03/04/16 Stop Date: 03/04/16 Status: Completed lisinopril 10 mg, 1 tab, Route: PO, Drug form: TAB, Daily, Dosing Weight 139.545, kg, Start date: 03/05/16 9:00:00 CDT, Duration: 30 day, Stop date: 04/03/16 9:00:00 CDT Notes: (Same as: Prinivil, Zestril) Start Date: 03/05/16 Stop Date: 03/05/16 Status: Discontinued LR 1000 mL INJ (ANES) Route: IV, Total Volume: 1,000, Start date: 03/04/16 10:39:00 CDT, Stop date: 11:39:00 CDT Start Date: 03/04/16 Stop Date: 03/04/16 Status: Completed methylene blue 10 mg/mL injectable solution 100 mg, 10 mL, Route: InFILtration(local), Drug form: INJ, ONCE, Dosing Weight 1 39.545, kg, Start date: 03/04/16 7:11:00 CDT, Stop date: 03/04/16 7:11:00 CDT Notes: (Same as :Methylene Blue) MEDICATION WASTE Product Size: 100 mgP roduct Wasted: ___ mg Start Date: 03/04/16 Stop Date: 03/04/16 Status: Completed metoprolol extended release 25 mg, 1 tab, Route: PO, Drug form: ERTAB, Daily, Start date: 03/05/16 9:00:00 C DT, Duration: 30 day, Stop date: 04/03/16 9:00:00 CDT Notes: (Same as: Toprol XL) Do Not Crush Start Date: 03/05/16 Stop Date: 03/05/16 Status: Discontinued midazolam (ANES) Route: IV, Drug form: SOLN, ONCE, Stop date: 03/04/16 11:24:00 CDT Start Date: 03/04/16 Stop Date: 03/04/16 Status: Completed morphine Sulfate 2 mg, 1 mL, Route: IVP, Drug form: INJ, Q1H, Dosing Weight 139.545, kg, PRN Pain Score 7-10, Start date: 03/04/16 16:37:00 CDT, Duration: 30 day, Stop date: 16:36:00 CDT Notes: (Same as:MORPhine Sulfate) Start Date: 03/04/16 Stop Date: 03/05/16 Status: Discontinued neostigmine (ANES) Route: IV, Drug form: INJ, ONCE, Stop date: 03/04/16 13:13:00 CDT Start Date: 03/04/16 Stop Date: 03/04/16 Status: Completed ondansetron (ANES) Route: IV, Drug form: INJ, ONCE, Stop date: 03/04/16 13:09:00 CDT Start Date: 03/04/16 Stop Date: 03/04/16 Status: Completed Phenergan 25 mg, 1 supp, Route: IN, Drug form: SUPP, ONCE, Dosing Weight 139.545, kg, PRN Nausea & Vomiting, Start date: 03/04/16 22:25:00 CDT, Stop date: 04/03/16 22:24:00 CDT Notes: (Same as: Phenergan) Start Date: 03/04/16 Stop Date: 03/04/16 Status: Completed pneumococcal 13-valent vaccine 0.5 mL, Route: IM, Drug Form: INJ, Daily, Start date: 03/05/16 9:00:00 CDT, Stop date: 03/05/16 11:00:00 CDT Notes: Lightly roll vial (DO NOT SHAKE) before administration. (Same as: Prevna r 13) Start Date: 03/05/16 Stop Date: 03/05/16 Status: Completed propofol (ANES) Route: IV, Drug form: INJ, ONCE, Stop date: 03/04/16 11:24:00 CDT Start Date: 03/04/16 Stop Date: 03/04/16 Status: Completed rocuronium (ANES) Route: IV, Drug form: INJ, ONCE, Stop date: 03/04/16 11:24:00 CDT Start Date: 03/04/16 Stop Date: 03/04/16 Status: Completed Tylenol 325 mg, Route: PO, Drug form: TAB, Q6H, Dosing Weight 139.545, kg, PRN Pain Scor e 1-3, Start date: 03/05/16 11:58:00 CDT, Duration: 30 day, Stop date: 04/04/16 11:57:00 CDT Start Date: 03/05/16 Stop Date: 03/05/16 Status: Deleted Tylenol 650 mg, 2 tab, Route: PO, Drug form: TAB, Q6H, Dosing Weight 139.545, kg, PRN Pa in Score 1-3, Start date: 03/05/16 11:29:00 CDT, Stop date: 04/04/16 11:28:00 CD T Notes: Do not exceed 4 gm/day. (Same as: Tylenol) Start Date: 03/05/16 Stop Date: 03/05/16 Status: Discontinued Tylenol with Codeine #3 oral tablet 1 tab, Route: PO, Drug Form: TAB, Dosing Weight 139.545, kg, Q4H, PRN Pain Score 1-3, Start date: 03/04/16 16:41:00 CDT, Duration: 30 day, Stop date: 04/03/16 1 6:40:00 CDT Notes: Do not exceed 4gm/day of acetaminophen. (Same as: Tylenol with Codeine # 3) Start Date: 03/04/16 Stop Date: 03/05/16 Status: Discontinued Tylenol with Codeine #3 oral tablet 2 tab, Route: PO, Drug Form: TAB, Dosing Weight 139.545, kg, Q4H, PRN Pain Score 4-6, Start date: 03/04/16 16:41:00 CDT, Duration: 30 day, Stop date: 04/03/16 1 6:40:00 CDT Notes: Do not exceed 4gm/day of acetaminophen. (Same as: Tylenol with Codeine # 3) Start Date: 03/04/16 Stop Date: 03/05/16 Status: Discontinued Zofran 4 mg, 2 mL, Route: IV, Drug form: INJ, Q4H, Dosing Weight 139.545, kg, PRN Nause a, Start date: 03/04/16 16:37:00 CDT, Duration: 30 day, Stop date: 04/03/16 16:3 6:00 CDT Notes: (Same as: Zofran) MEDICATION WASTE Product Size: 4 mgProduct Was david: ___ mg Start Date: 03/04/16 Stop Date: 03/05/16 Status: Discontinued Results No data available for this section Immunizations Given and Recorded Vaccine Date Status Refusal Reason pneumococcal 13-valent vaccine 03/05/16 Given Procedures Procedure Date Related Diagnosis Body Site ACL - Reconstruction of anterior cruciate ligament Appendectomy Carpal tunnel release Epidural block Hip replacement Hysterectomy Nerve block Social History Social History Type Response Substance Abuse Use: None. Alcohol Past Smoking Status Former smoker; Type: Cigarettes; Stopped at age: 25; Exposure to Tobacco Smoke None; Cigarette Smoking Last 365 Days No; Reg Smoking Cessation Counseling No Assessment and Plan Extracted from: Title: Clinical Document Author: Albino Saldaña MD Date: 03/05/16 doing well. nausea overnight resolved. pain control good. incision clean. final diagnosis: Left breast cancer operations/procedures: see op report activity: as instructed in office f/u: 2 weeks meds: see med reconciliation d/c home today
--- OUTSIDE RECORDS SUMMARY | 2019-04-29 12:58 | XMS REPORT ---
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 Allergies, Adverse Reactions, Alerts This patient has no known allergies or adverse reactions. Medications This patient has no known medications. Results Test Description Test Time Test Comments Text Results Atomic Results Result Comments DIAG MAMM RIGHT CAD DIGITAL 2018-10-04 14:50:35 - DIAG MAMM RIGHT CAD DIGITALUNILATERAL RIGHT DIGITAL DIAGNOSTIC MAMMOGRAM WITH CAD: 10/04/2018Current mammographic images were evaluated by either a [employer] M-Vu or a [employer] ImageChecker CAD (computer aided detection system). Comparison is made to exams dated 10/14/2017 mammogram, 10/12/2016 mammogram - [facility] and 02/11/2016 mammogram - [facility]. There are scattered fibroglandular tissues in the right breast. No new suspicious mass, architectural distortion, malignant type calcification, or lymph node abnormality detected. A subcentimeter intramammary lymph node is noted in the right breast at 10 o'clock, 10 cm from the nipple; stable in mammographic appearance since 2016. The patient is status post left mastectomy in 2015.INCOMPLETE ASSESSMENT: ADDITIONAL IMAGING EVALUATION RECOMMENDEDNo mammographic abnormality is identified, however, an ultrasound will be performed later today to exclude an underlying sonographic abnormality.- BREAST ULTRASOUND RIGHTULTRASOUND OF RIGHT BREAST AND RIGHT AXILLA: 10/04/2018Comparison is made to exams dated 10/14/2017 mammogram, 10/12/2016 mammogram - [facility]-, and 02/11/2016 mammogram - [facility]. Real-time ultrasound of the right breast and axilla was performed. A 5 mm intramammary lymph node is identified in the right breast at 10 o'clock, 10 cm from the nipple. An oval circumscribed echog enic mass measuring 9 x 4 mm, most consistent with a benign appearing lipoma, is identified in the right breast at 1 o'clock, 2 cm from the nipple. The remainder of the right breast and right axillary ultrasound is unremarkable.IMPRESSION: NEGATIVE - FOLLOW-UP RECOMMENDEDThere is no sonographic evidence of malignancy. A follow-up mammogram in 12 months is recommended. Nkechi Montoya M.D. ar/:10/04/2018 14:50:35 Entry: - 10/06/2018 12:11:59copy to: Perry Youssef D.O., ph: [phone], fax: [phone] Technologist: Maura Mcgrath , [facility]letter sent: BIRADS 1-2 Combo FU Letter Mammogram BI-RADS: 0 Indeterminate Ultrasound BI- RADS: 1 Negative BREAST ULTRASOUND RIGHT 2018-10-04 14:50:35 - DIAG MAMM RIGHT CAD DIGITALUNILATERAL RIGHT DIGITAL DIAGNOSTIC MAMMOGRAM WITH CAD: 10/04/2018Current mammographic images were evaluated by either a [employer]-Vu or a [employer] CAD (computer aided detection system). Comparison is made to exams dated 10/14/2017 mammogram, 10/12/2016 mammogram - [facility], and 02/11/2016 mammogram - [facility]. There are scattered fibroglandular tissues in the right breast. No new suspicious mass, architectural distortion, malignant type calcification, or lymph node abnormality detected. A subcentimeter intramammary lymph node is noted in the right breast at 10 o'clock, 10 cm from the nipple; stable in mammographic appearance since 2016. The patient is status post left mastectomy in 2015.INCOMPLETE ASSESSMENT: ADDITIONAL IMAGING EVALUATION RECOMMENDEDNo mammographic abnormality is identified, however, an ultrasound will be performed later today to exclude an underlying sonographic abnormality.- BREAST ULTRASOUND RIGHTULTRASOUND OF RIGHT BREAST AND RIGHT AXILLA: 10/04/2018Comparison is made to exams dated 10/14/2017 mammogram, 10[facility], and 02/11/2016 mammogram - [facility]. Real-time ultrasound of the right breast and axilla was performed. A 5 mm intramammary lymph node is identified in the right breast at 10 o'clock, 10 cm from the nipple. An oval circumscribed echog enic mass measuring 9 x 4 mm, most consistent with a benign appearing lipoma, is identified in the right breast at 1 o'clock, 2 cm from the nipple. The remainder of the right breast and right axillary ultrasound is unremarkable.IMPRESSION: NEGATIVE - FOLLOW-UP RECOMMENDEDThere is no sonographic evidence of malignancy. A follow-up mammogram in 12 months is recommended. Nkechi Montoya M.D. ar/:10/04/2018 14:50:35 Entry: - 10/06/2018 12:11:59copy to: Perry Youssef D.O., ph: [phone], fax: [phone] Technologist: Maura LOZANO, [facility]FWletter sent: BIRADS 1-2 Combo FU Letter Mammogram BI-RADS: 0 Indeterminate Ultrasound BI- RADS: 1 Negative
[2019-04-29] MEDS ORDERED: HYDROMORPHONE 1MG/1ML INJ IM NR (13:15)
--- NOTE | 2019-04-29 14:09 | Diagnostic Imaging Report ---
EXAMINATION: PA and lateral views of the chest. COMPARISON: The report for a CT scan of the chest from 03/01/2017 was available. No images were available for review. CLINICAL HISTORY: Upper and mid back pain DISCUSSION: The lungs are well-inflated. There is linear opacity in the left lung base which may reflect scar or subsegmental atelectasis. No consolidation, pleural effusion, or pneumothorax. Atherosclerotic calcification of the thoracic aorta with otherwise normal cardiomediastinal contour. No acute osseous abnormality. Nonaggressive appearing lucency in the distal right clavicle is noted, and was described on comparison CT from 2017. Mild degenerative disc changes of the thoracic spine. No definite compression deformities. IMPRESSION: Subsegmental atelectasis or linear fibrosis in the left lung base. Otherwise no acute cardiopulmonary abnormality. Signed by: Dr. Isaak Mcleod M.D. on 04/29/2019 2:06 PM
--- NOTE | 2019-04-29 14:30 | NUR ---
WALTER Serrano AT BEDSIDE RE-EVALUATING PATIENT AND DISCUSSING PAIN MANAGEMENT WITH HER
[2019-04-29] MEDS ORDERED: LIDOCAINE 5% PATCH TP ONE (14:45)
== END 2019-04-29 15:34 | disposition home or self-care (01) ==
LOC: ER 12:54
DX: M62.830 Muscle spasm of back (principal); I10 Essential (primary) hypertension
CPT/HCPCS: 71046; 99283; J1170

== ENCOUNTER → 2019-05-01 | Outpatient (CLI) | payer MEDICARE ==
--- NOTE | 2019-05-01 12:40 | Diagnostic Imaging Report ---
EXAM: Focused Soft Tissue Ultrasound Evaluation of right upper back INDICATION: ^[id number] ^[id number] ^UPPER BACK PAIN/NODULE OF BACK COMPARISON: None TECHNIQUE: Mccallum scale, color Doppler images of the soft tissues of the right upper back were obtained. FINDINGS: Focused sonographic evaluation of the soft tissues of the right upper back in the area of clinical interest demonstrates no evidence of mass, fluid collection, or other soft tissue abnormality. IMPRESSION: Unremarkable focused ultrasound of the area of clinical interest at the right upper back. Signed by: Ronna Mace MD on 05/01/2019 12:36 PM
== END ==
LOC: US 10:27
PROVIDERS: ATTEND Family Medicine
DX: R22.2 Localized swelling, mass and lump, trunk (principal); M54.6 Pain in thoracic spine; M62.830 Muscle spasm of back
CPT/HCPCS: 76882

== ENCOUNTER → 2019-06-20 | Outpatient (CLI) | payer MEDICARE | LOC: MRI 09:06 | PROVIDERS: ATTEND Family Medicine | DX: M54.14 Radiculopathy, thoracic region (principal); M51.34 Other intervertebral disc degeneration, thoracic region; M47.814 Spondylosis without myelopathy or radiculopathy, thoracic region ==

== ENCOUNTER → 2025-03-05 | Day surgery (SDC) | payer MEDICARE ==
[2025-03-01 14:20] LABS: LYMPHOCYTES % 32.2 % (18.0-39.1); MONOCYTES % 15.1 % (4.4-11.3); NEUTROPHILS % 51.5 % (38.7-80.0); RED CELL DISTRIBUTION WIDTH 13.1 % (11.7-14.4)
[2025-03-01 14:21] LABS: BASOPHILS % 0.5 % (0.0-1.0); EOSINOPHILS % 0.7 % (0.0-6.0)
[~2025-03-05] MED LIST changes: +ASPIRIN81 MG PO; +CEFDINIR300 MG PO; +COREG12.5 MG PO; +CRESTOR40 MG PO; +FAMOTIDINE20 MG PO; +FENTANYL CITRATE/PF 100MCG/2 ML INJ ONE; +GLUCAGON FOR INJ 1 MG VIAL ONE; +LIDOCAINE HCL 2% LOCAL INJ 5 ML SDV VIAL INJ ONE; +MOUNJARO5 MG/0.5 M SC; +NOVOLOG100 UNIT/1 SC; +ONDANSETRON ODT8 MG PO; +PROPOFOL IV EMULSION 10 MG/ML 20 ML VIAL ONE; +PROPOFOL IV EMULSION 50 ML IV ONE; +TRESIBA100 UNIT/1 SC; +TRIAMTERENE-HCTZ1 EA PO
[2025-03-05] MEDS: LACTATED RINGER'S 1,000 ML ONE (12:26)
[2025-03-05 15:35] VITALS: BP 152/72; PULSE 75; RESP 18; O2SAT 97
== END | disposition home or self-care (01) ==
LOC: OR 11:46
PROVIDERS: ATTEND Internal Medicine Gastroenterology
DX: K29.50 Unspecified chronic gastritis without bleeding (principal); K21.00 Gastro-esophageal reflux disease with esophagitis, without bleeding; K44.9 Diaphragmatic hernia without obstruction or gangrene; K29.80 Duodenitis without bleeding; K31.89 Other diseases of stomach and duodenum; D12.3 Benign neoplasm of transverse colon; K63.5 Polyp of colon; K57.30 Diverticulosis of large intestine without perforation or abscess without bleeding; K64.8 Other hemorrhoids; I10 Essential (primary) hypertension; E78.5 Hyperlipidemia, unspecified; I25.2 Old myocardial infarction; I45.10 Unspecified right bundle-branch block; E11.9 Type 2 diabetes mellitus without complications; Z79.84 Long term (current) use of oral hypoglycemic drugs; Z79.85 Long-term (current) use of injectable non-insulin antidiabetic drugs; Z79.4 Long term (current) use of insulin; E03.9 Hypothyroidism, unspecified; G47.33 Obstructive sleep apnea (adult) (pediatric); Z87.891 Personal history of nicotine dependence; Z01.810 Encounter for preprocedural cardiovascular examination; Z01.812 Encounter for preprocedural laboratory examination; Z85.3 Personal history of malignant neoplasm of breast; Z90.10 Acquired absence of unspecified breast and nipple; Z79.899 Other long term (current) drug therapy; Z79.82 Long term (current) use of aspirin
CPT/HCPCS: 36415 ×2; 43239; 45385; 82948; 85025; 88305; 88342; 93005; J1610; J2003; J2704 ×2; J3010; J7121; 45378; 88312